=== PATIENT | female | born 1955 | race Caucasian/White ===

== ENCOUNTER → 2016-11-02 | Outpatient (CLI) | payer BC ==
[~2016-11-02] MED LIST: ATOR20TA59 PO; CITA-49 PO; CYCL-375 PO; DICL100G31 TOP; GABA-336 PO; HYDR-3989 PO; IOHEXOL 300 MG/ML 50ml INJECTION ONE; METH25VI11 SQ; METO-275 PO; NORMAL SALINE 100 ML ONE; RAMI5CAP PO; RANI150T7 PO; RIVA15TA PO; SALINE FLUSH 10ml SYRINGE ONE; SUCR1TAB PO
--- NOTE | 2016-11-02 16:26 | DI ---
Indication: ITS.REASON: R51 HEADACHE PROCEDURE: CT HEAD W/WO CONTRAST: Comparison: Head CT dated December 04, 2015 Technique: Axial CT images through the head were performed without and with IV contrast. Iterative Reconstruction dose reducing technique was utilized. Contrast: Omnipaque 300 50mL FINDINGS: The ventricles are of normal size, shape, and contour for the patient's age. Scattered low-attenuation white matter disease probably related to chronic microvascular ischemia, similar to the prior. The brainstem, cerebellum, and cerebral hemispheres have a normal morphology and CT attenuation. No hemorrhage, mass effect, mass lesions, or edema is evident. No areas of abnormal enhancement are seen. The visualized portions of the skull base, sinuses, and calvarium demonstrate no acute abnormality. Prior sinus surgery. IMPRESSION: No acute intracranial abnormality. Stable head CT. .
== END ==
LOC: IMA 14:59
PROVIDERS: ATTEND Physician Assistant
DX: R51 Headache (principal)
CPT/HCPCS: 70470; J7050; Q9967

== ENCOUNTER 2017-01-31 11:24 | Observation (INO) ==
[2017-01-31] MEDS ORDERED: SALINE FLUSH 10ml SYRINGE IVF PRN (11:30)
--- NOTE | 2017-01-31 11:41 | CT Scan Report ---
Indication: Stroke sx PROCEDURE: CT head/brain wo con: Encounter: Initial Comparison: Head CT dated November 02, 2016 Technique: Axial CT images through the head were performed without contrast. Iterative Reconstruction dose reducing technique was utilized. FINDINGS: The ventricles are of normal size, shape, and contour for the patient's age. There are scattered areas of low attenuation in the white matter which most likely represent changes from chronic microvascular ischemia. The brainstem, cerebellum, and cerebral hemispheres otherwise have a normal morphology and CT attenuation. There is no evidence of midline displacement. No hemorrhage, signs of acute territorial stroke, mass effect, mass lesions, or edema is evident. The visualized portions of the skull base, midface, and calvarium demonstrate no abnormality. The paranasal sinuses are well aerated and free of significant disease. The tympanic and mastoid cavities appear normal. IMPRESSION: No acute intracranial hemorrhage or extended infarct signs. .
[2017-01-31] MEDS ORDERED: NS 1,000 ML IV SCH (12:00)
--- NOTE | 2017-01-31 12:32 | XRay Report ---
Indication: Weakness PROCEDURE: XR chest 1V: Encounter: Initial Comparison: April 17, 2016 Findings: The lungs are stable in appearance without new focal airspace consolidation. There is no pleural effusion or pneumothorax. The heart size, pulmonary vascularity and mediastinal contours are unchanged. IMPRESSION: Stable appearance of the chest without acute cardiopulmonary disease. .
--- NOTE | 2017-01-31 12:32 | Emergency Department Report ---
Weakness HPI - General Chief complaint: Weakness Stated complaint: poss stroke Time Seen by Provider: 01/31/17 11:30 Source: patient, family Mode of arrival: ambulatory Limitations: no limitations - History of Present Illness HPI Narrative: 62yo woman referred to the ER for confusion. Pt has a h/o HTN (no longer under treatment). Was recently dx'ed with DM2 by her PCM; is not taking any hypoglycemics. Pt has a h/o TIAs (had "5" last summer). No known acute coronary hx, but is on xarelto for prior x2 PEs. Pt denies issues now other than feeling 'funny". Onset (ago): day(s) (3) Duration: intermittent Location: generalized Migration: none Relieving factors: none Exacerbating factors: exertion Context: history of similar - Related Data Home Medications Medication Instructions Recorded Confirmed Ramipril [Altace] 5 mg PO DAILY #0 02/02/15 01/31/17 Metoprolol Succinate 25 mg PO BID #0 12/04/15 01/31/17 Cyclobenzaprine HCl 10 mg PO BID PRN #0 04/17/16 01/31/17 raNITIdine HCl [Ranitidine HCl] 150 mg PO HS #0 04/17/16 01/31/17 Acetaminophen [Acetaminophen ER] 650 mg PO Q4H 01/31/17 01/31/17 Albuterol Inhaler [Ventolin Hfa] 2 puff ORAL INH Q4HR PRN 01/31/17 01/31/17 Albuterol Sulfate [Proair Hfa] 1 puff INH Q4H PRN 01/31/17 01/31/17 Beclomethasone 40 Mcg/Actuatio 2 puff ORAL INH BID 01/31/17 01/31/17 [Qvar Inhaler] Diclofenac [Voltaren] 1 applic TOP QID PRN 01/31/17 01/31/17 Folic Acid [Folate] 1 mg PO DAILY 01/31/17 01/31/17 Hydrocodone/APAP 7.5/325 [[place] 1 tab PO BID PRN 01/31/17 01/31/17 7.5/325] Methotrexate/Pf [Rasuvo 20 mg/0.4 20 mg SQ WEEKLY 01/31/17 01/31/17 ml Autoinj] Rivaroxaban [Xarelto] 15 mg PO QAM 01/31/17 01/31/17 Previous Rx's Medication Instructions Recorded citalopram 20 mg tablet 20 mg PO DAILY #30 tab 01/05/17 sucralfate 1 gram tablet 1 g PO QID #120 tab 01/05/17 Cyanocobalamin (Vitamin B-12) 1,000 mcg PO DAILY #100 tablet 02/01/17 [Vitamin B12] Metformin [Glucophage] 500 mg PO BIDWM #60 tablet 02/01/17 Allergies Allergy/AdvReac Type Severity Reaction Status Date / Time adhesive tape Allergy Intermediate BLISTERS Verified 01/31/17 12:39 morphine Allergy Intermediate Verified 01/31/17 12:39 aspirin Allergy Unknown Verified 01/31/17 12:39 cefaclor Allergy Unknown Verified 01/31/17 12:39 celecoxib Allergy Unknown Verified 01/31/17 12:39 cephalexin Allergy Unknown Verified 01/31/17 12:39 Influenza Virus Vaccines Allergy Unknown Verified 01/31/17 12:39 metronidazole Allergy Unknown Verified 01/31/17 12:39 Penicillins Allergy Unknown Verified 01/31/17 12:39 rabeprazole Allergy Unknown Verified 01/31/17 12:39 Sulfa (Sulfonamide Allergy Unknown Verified 01/31/17 12:39 Antibiotics) Review of Systems All systems: reviewed and negative except as stated Neurological: Reports: weakness, confusion PFSH Patient Stated Medical History Cerebrovascular Accident Yes Hypertension Yes Other Respiratory Yes: clots lungs Diabetes Mellitus Type 2 Yes Gastroesophageal Reflux Yes Disease Hx Kidney Stones Yes Depression Yes Clinic Medical History (Last Updated 02/01/17 @ 14:33 by Gavin Parikh MD) Allergic rhinitis (Chronic Medical) Anemia, B12 deficiency (Chronic Medical) Gastritis (Chronic Medical) History of deep venous thrombosis or pulmonary embolus (Chronic Medical) Peptic ulcer disease (Chronic Medical) TIA (transient ischemic attack) (Chronic Medical) Surgical History: left CTS/trigger finger (Dr. Santos?). Colonoscopy 2013. Cholecystectomy. Appendectomy. TAHBSO. Family History: Family History Mother , traumatic brain injury No problems noted. Father Pulmonary emphysema Sister Stomach cancer Brother Lung mass Brother Lung mass Sister Coronary artery disease involving coronary bypass graft - Social History Smoking status: Former smoker Physical Exam - Limitations Limitations: no limitations - General General appearance: alert, in no apparent distress, obese - Normal Exams: Head:: Normocephalic without trauma Eyes:: Pupils are PERRLA w/ EOMI, No scleral icterus, irritation, or foreign bodies noted ENMT:: No facial trauma, nasal exudates, pharyngeal erythema, or exudates are noted Neck:: Full range of motion, without adenopathy, JVD, bruits or thyromegaly Chest/Respirations:: Clear all parker, with good airflow, and symmetry bilaterally Cardiovascular:: Regular rate and rhythm, without murmur or gallop, Pulses 2+ all extremities, capillary refill, <2 seconds all extremities Abdomen:: Bowel sounds positive, soft, non-tender, non-distended, no hepatosplenomegaly, masses or bruits noted Lymphatic:: No lymphadenopathy, or lymphedema noted Musculoskeletal:: No tenderness, or deformity noted, good range of motion, all extremities Integumentary:: No rashes, hives, or bruising noted, hair and nails, without abnormality Psychiatric:: Patient exhibits, appropriate attention, emotion and affect - Expanded Neurological Exam Patient oriented to: Present: person, place, time Speech: Present: fluid speech Cranial nerves: Normal: EOM function (II, III, IV, ), tongue deviation (XII) Cerebellar function: Abnormal Left: finger to nose, heel to villalba Cerebellar function: ataxic gait Motor strength - LUE: 4/5 Motor strength - RUE: 5/5 Motor strength - LLE: 4/5 Motor strength - RLE: 5/5 Upper motor neuron exam: Absent bilaterally: arsh neglect, pronator drift, Babinski sign, sensory extinction Sensory exam upper extremity: Normal: light touch Sensory exam lower extremity: Normal: light touch DTR: 2+: biceps (L), biceps (R), patellar (L), patellar (R) Coma scale eye opening: spontaneous Coma scale motor response: obeys commands Coma scale verbal response: oriented Coma scale total: 15 Course - Consultations Consultation #1: Hospitalist: Will admit to complete CVA workup. Time: 13:41 Vital Signs Pulse Rate 57 L 01/31/17 12:38 Respiratory Rate 18 01/31/17 12:38 Pulse Oximetry 96 01/31/17 12:38 Temperature 97.2 F 02/01/17 07:49 Pulse Rate 71 02/01/17 07:49 Respiratory Rate 14 02/01/17 10:16 Blood Pressure 133/67 02/01/17 07:49 Pulse Oximetry 91 02/01/17 10:16 Weakness - Differential Diagnosis Differential diagnosis: Likely: anemia (TIA, CVA, Hyponatremia), hypoglycemia, hypothyroidism - Medical Records Attestation: I reviewed the patient's medical records. - Lab Data Attestation: I reviewed the patient's lab results. Result diagrams: 02/01/17 04:53 02/01/17 04:53 Lab Results 01/31/17 01/31/17 01/31/17 Range/Units 11:51 11:51 11:51 WBC 5.3 (4.5-11.0) T/MM3 RBC 4.48 (4.00-5.20) M/MM3 Hgb 12.8 (12-16) GM/DL Hct 39.7 (36-46) % MCV 88.6 (80-100) UM3 MCH 28.6 (26-34) UUG MCHC 32.2 (31-37) GM/DL RDW Std Deviation 45.0 (36.9-50.2) FL Plt Count 176 (130-400) T/MM3 MPV 9.0 L (9.4-12.4) UM3 Immature Gran % (Auto) 0.0 (0.0-0.5) % Neut % (Auto) 55.8 (33-66) % Lymph % (Auto) 31.6 (23-45) % [place] % (Auto) 8.0 (0-9.0) % Eos % (Auto) 4.0 (0-4) % Baso % (Auto) 0.6 (0-2) % Neut # 3.0 (1.8-7.7) T/MM3 Lymph # 1.7 (1-4.8) T/MM3 [place] # 0.4 (0-0.8) T/MM3 Eos # 0.2 (0-0.5) T/MM3 Baso # 0.0 (0-0.2) T/MM3 Abs Immat Gran (auto) 0.00 (0.00-0.03) T/MM3 INR 1.65 H (0.99-1.21) APTT 35.1 (24-36) SEC Turbidity < 20 (0-20) Sodium 140 (134-144) MEQ/L Potassium 4.3 (3.6-5) MEQ/L Chloride 107 (98-107) MEQ/L Carbon Dioxide 27 (22-30) MEQ/L Anion Gap 6 (5-15) MEQ/L BUN 16.0 (7-17) MG/DL Creatinine 0.6 L (0.7-1.2) MG/DL GFR Calculation 101 BUN/Creatinine Ratio 27 H (6-26) RATIO Glucose 208 H (65-110) MG/DL Calculated Osmolality 276 (261-280) MOSM/KG Calcium 10.7 H (8.4-10.2) MG/DL Phosphorus (2.5-4.5) MG/DL Total Bilirubin 1.00 (0.20-1.30) MG/DL Icterus Index < 2 (0-7) AST 22 (14-36) U/L ALT 47 (9-52) U/L Alkaline Phosphatase 130 H (38-126) U/L Troponin I (0-0.12) ng/ml Total Protein 6.5 (6.3-8.2) G/DL Albumin 4.1 (3.5-5.0) G/DL Globulin 2.4 (2.4-3.6) G/DL Albumin/Globulin Ratio 1.7 (1.1-2.2) RATIO Vitamin B12 (239-931) PG/ML TSH (0.47-4.68) MIU/L Specimen Hemolysis < 15 (0-25) Ur Collection Type Urine Color (YELLOW) Urine Clarity Urine pH (5.0-8.0) Ur Specific [place] (1.015-1.025) Urine Protein (NEGATIVE) Urine Glucose (UA) (NEGATIVE) Urine Ketones (NEGATIVE) Urine Occult Blood (NEGATIVE) Urine Nitrate (NEGATIVE) Urine Bilirubin (NEGATIVE) Urine Urobilinogen (NORMAL) EU/DL Ur Leukocyte Esterase (NEGATIVE) Urine RBC (0-3) /HPF Urine WBC (0-5) /HPF Ur Squamous Epith Cells Urine Bacteria (NEGATIVE) Ur Culture Indicated? B-Hydroxybutyrate (0-0.6) MMOL/L 01/31/17 01/31/17 01/31/17 Range/Units 12:13 12:13 12:13 WBC (4.5-11.0) T/MM3 RBC (4.00-5.20) M/MM3 Hgb (12-16) GM/DL Hct (36-46) % MCV (80-100) UM3 MCH (26-34) UUG MCHC (31-37) GM/DL RDW Std Deviation (36.9-50.2) FL Plt Count (130-400) T/MM3 MPV (9.4-12.4) UM3 Immature Gran % (Auto) (0.0-0.5) % Neut % (Auto) (33-66) % Lymph % (Auto) (23-45) % [place] % (Auto) (0-9.0) % Eos % (Auto) (0-4) % Baso % (Auto) (0-2) % Neut # (1.8-7.7) T/MM3 Lymph # (1-4.8) T/MM3 [place] # (0-0.8) T/MM3 Eos # (0-0.5) T/MM3 Baso # (0-0.2) T/MM3 Abs Immat Gran (auto) (0.00-0.03) T/MM3 INR (0.99-1.21) APTT (24-36) SEC Turbidity (0-20) Sodium (134-144) MEQ/L Potassium (3.6-5) MEQ/L Chloride (98-107) MEQ/L Carbon Dioxide (22-30) MEQ/L Anion Gap (5-15) MEQ/L BUN (7-17) MG/DL Creatinine (0.7-1.2) MG/DL GFR Calculation BUN/Creatinine Ratio (6-26) RATIO Glucose (65-110) MG/DL Calculated Osmolality (261-280) MOSM/KG Calcium (8.4-10.2) MG/DL Phosphorus 2.4 L (2.5-4.5) MG/DL Total Bilirubin (0.20-1.30) MG/DL Icterus Index (0-7) AST (14-36) U/L ALT (9-52) U/L Alkaline Phosphatase (38-126) U/L Troponin I < 0.012 (0-0.12) ng/ml Total Protein (6.3-8.2) G/DL Albumin (3.5-5.0) G/DL Globulin (2.4-3.6) G/DL Albumin/Globulin Ratio (1.1-2.2) RATIO Vitamin B12 281 (239-931) PG/ML TSH 0.81 (0.47-4.68) MIU/L Specimen Hemolysis < 15 (0-25) Ur Collection Type Urine Color (YELLOW) Urine Clarity Urine pH (5.0-8.0) Ur Specific [place] (1.015-1.025) Urine Protein (NEGATIVE) Urine Glucose (UA) (NEGATIVE) Urine Ketones (NEGATIVE) Urine Occult Blood (NEGATIVE) Urine Nitrate (NEGATIVE) Urine Bilirubin (NEGATIVE) Urine Urobilinogen (NORMAL) EU/DL Ur Leukocyte Esterase (NEGATIVE) Urine RBC (0-3) /HPF Urine WBC (0-5) /HPF Ur Squamous Epith Cells Urine Bacteria (NEGATIVE) Ur Culture Indicated? B-Hydroxybutyrate 0.10 (0-0.6) MMOL/L 01/31/17 Range/Units 12:22 WBC (4.5-11.0) T/MM3 RBC (4.00-5.20) M/MM3 Hgb (12-16) GM/DL Hct (36-46) % MCV (80-100) UM3 MCH (26-34) UUG MCHC (31-37) GM/DL RDW Std Deviation (36.9-50.2) FL Plt Count (130-400) T/MM3 MPV (9.4-12.4) UM3 Immature Gran % (Auto) (0.0-0.5) % Neut % (Auto) (33-66) % Lymph % (Auto) (23-45) % [place] % (Auto) (0-9.0) % Eos % (Auto) (0-4) % Baso % (Auto) (0-2) % Neut # (1.8-7.7) T/MM3 Lymph # (1-4.8) T/MM3 [place] # (0-0.8) T/MM3 Eos # (0-0.5) T/MM3 Baso # (0-0.2) T/MM3 Abs Immat Gran (auto) (0.00-0.03) T/MM3 INR (0.99-1.21) APTT (24-36) SEC Turbidity (0-20) Sodium (134-144) MEQ/L Potassium (3.6-5) MEQ/L Chloride (98-107) MEQ/L Carbon Dioxide (22-30) MEQ/L Anion Gap (5-15) MEQ/L BUN (7-17) MG/DL Creatinine (0.7-1.2) MG/DL GFR Calculation BUN/Creatinine Ratio (6-26) RATIO Glucose (65-110) MG/DL Calculated Osmolality (261-280) MOSM/KG Calcium (8.4-10.2) MG/DL Phosphorus (2.5-4.5) MG/DL Total Bilirubin (0.20-1.30) MG/DL Icterus Index (0-7) AST (14-36) U/L ALT (9-52) U/L Alkaline Phosphatase (38-126) U/L Troponin I (0-0.12) ng/ml Total Protein (6.3-8.2) G/DL Albumin (3.5-5.0) G/DL Globulin (2.4-3.6) G/DL Albumin/Globulin Ratio (1.1-2.2) RATIO Vitamin B12 (239-931) PG/ML TSH (0.47-4.68) MIU/L Specimen Hemolysis (0-25) Ur Collection Type Urine, clean catch Urine Color Yellow (YELLOW) Urine Clarity Clear Urine pH 6.0 (5.0-8.0) Ur Specific [place] 1.020 (1.015-1.025) Urine Protein Negative (NEGATIVE) Urine Glucose (UA) 3+ A (NEGATIVE) Urine Ketones Negative (NEGATIVE) Urine Occult Blood Negative (NEGATIVE) Urine Nitrate Negative (NEGATIVE) Urine Bilirubin Negative (NEGATIVE) Urine Urobilinogen 1.0 (NORMAL) EU/DL Ur Leukocyte Esterase Negative (NEGATIVE) Urine RBC 0-1 (0-3) /HPF Urine WBC 0-1 (0-5) /HPF Ur Squamous Epith Cells 0-5 Urine Bacteria None seen (NEGATIVE) Ur Culture Indicated? Cult not indicated B-Hydroxybutyrate (0-0.6) MMOL/L - Radiology Data Attestation: I reviewed the patient's radiology results. CT Head:No acute intracranial hemorrhage or extended infarct signs. CXR: Disposition Clinical Impression: CVA (cerebral vascular accident) Qualifiers: CVA mechanism: unspecified Qualified Code(s): I63.9 - Cerebral infarction, unspecified Disposition: 02 To [facility] Condition: Improved Time of Disposition: 13:49 - Seen By: physician
[2017-01-31] MEDS ORDERED: ACETAMINOPHEN 500 MG TABLET PO PRN (13:30)
--- NOTE | 2017-01-31 15:53 | History & Physical Report ---
<Nisha Larson V - Last Filed: 01/31/17 15:42> History of Present Illness Date: 01/31/17 Chief complaint: chest pain, left arm numbness, confusion HPI: She is a 62-year-old female who presented to see her primary care provider, Zenia Arias this morning for a routine follow-up of new onset diabetes. During her visit. Miesha reported of having intermittent episodes of chest pain with left arm numbness for the past several weeks. She reported that she has had a change in her concentration and has episodes of confusion with memory deficits. It was reported that patient had an A1c in November 2015 that was 7.3. Patient did not start diabetes medication at that time. Given the concern of these acute symptoms. Patient was directed to the emergency room for further acute evaluation and treatment. CBC was found to be normal. Sodium is 140, potassium 4.3, BUNs 16, creatinine 0.6. Glucose is elevated at 208. Calcium is elevated at 10.7, phosphorus is low at 2.4. Initial troponin is undetectable. INR is 1.65. Urinalysis did reveal 3+ glucose, otherwise unremarkable. B- Hydroxybutyrate was normal at 0.10. CT scan of the head was performed showing no acute intracranial hemorrhage or infarcts. Asked x-ray did not reveal any acute cardiopulmonary concerns. Is afebrile in the emergency room. She is noted to have elevated blood pressure 171/78. Given findings of mental status change . Complaint with ongoing chest pain with left arm numbness. The hospitalist services were contacted and accepted patient for outpatient admission for further evaluation and treatment. Miesha is seen on initial examination. She is alert and oriented and pleasant during examination. She does describe intermittent episodes of chest pressure with left arm numbness that have been ongoing for the past 3 weeks. She notes in the last several days that she is confused and cannot remember certain tasks. She also describes looking at a computer screen and unable to read "normal words". He has had no recent trauma or acute changes. Patient is active and resides independently with her . She continues to work. Review of Systems All systems: reviewed and no additional remarkable complaints except as stated - Constitutional Constitutional: Present: fatigue - Cardiovascular Cardiovascular: Present: chest pain - Neurological Neurological: Present: as per HPI, confusion, headache(s), numbness (left arm) [facility] Clinic Medical History (Last Updated 01/31/17 @ 13:50 by Yandel Rdz November, DO) Type II diabetes Coronary artery disease Hypertension Hx of TIA Hx of PE and DVT Allergic rhinitis Anemia, B12 deficiency hx of Gastritis and Peptic ulcer disease Depression History of kidney stones Surgical History: left CTS/trigger finger (Dr. Santos?). L4-L5 lumbar fusion. Colonoscopy 2012. Cholecystectomy. Appendectomy. TAHBSO. Left total knee replacement. Right shoulder surgery Family History: Family History Mother , traumatic brain injury No problems noted. Father Pulmonary emphysema Sister Stomach cancer Brother Lung mass Brother Lung mass Sister Coronary artery disease involving coronary bypass graft - Social History Smoking status: Former smoker Medications Home Medications Medication Instructions Recorded Confirmed Type Ramipril [Altace] 5 mg PO DAILY #0 02/02/15 01/31/17 History Metoprolol Succinate 25 mg PO BID #0 12/04/15 01/31/17 History Cyclobenzaprine HCl 10 mg PO BID PRN #0 04/17/16 01/31/17 History raNITIdine HCl [Ranitidine HCl] 150 mg PO HS #0 04/17/16 01/31/17 History Acetaminophen [Acetaminophen ER] 650 mg PO Q4H 01/31/17 01/31/17 History Albuterol Inhaler [Ventolin Hfa] 2 puff ORAL INH Q4HR PRN 01/31/17 01/31/17 History Albuterol Sulfate [Proair Hfa] 1 puff INH Q4H PRN 01/31/17 01/31/17 History Beclomethasone 40 Mcg/Actuatio 2 puff ORAL INH BID 01/31/17 01/31/17 History [Qvar Inhaler] Diclofenac [Voltaren] 1 applic TOP QID PRN 01/31/17 01/31/17 History Folic Acid [Folate] 1 mg PO DAILY 01/31/17 01/31/17 History Hydrocodone/APAP 7.5/325 [[place] 1 tab PO BID PRN 01/31/17 01/31/17 History 7.5/325] Methotrexate/Pf [Rasuvo 20 mg/0.4 20 mg SQ WEEKLY 01/31/17 01/31/17 History ml Autoinj] Rivaroxaban [Xarelto] 15 mg PO QAM 01/31/17 01/31/17 History Allergies Allergy/AdvReac Type Severity Reaction Status Date / Time adhesive tape Allergy Intermediate BLISTERS Verified 01/31/17 12:39 morphine Allergy Intermediate Verified 01/31/17 12:39 aspirin Allergy Unknown Verified 01/31/17 12:39 cefaclor Allergy Unknown Verified 01/31/17 12:39 celecoxib Allergy Unknown Verified 01/31/17 12:39 cephalexin Allergy Unknown Verified 01/31/17 12:39 Influenza Virus Vaccines Allergy Unknown Verified 01/31/17 12:39 metronidazole Allergy Unknown Verified 01/31/17 12:39 Penicillins Allergy Unknown Verified 01/31/17 12:39 rabeprazole Allergy Unknown Verified 01/31/17 12:39 Sulfa (Sulfonamide Allergy Unknown Verified 01/31/17 12:39 Antibiotics) Exam Vital Signs: Temperature 96.7 F L 01/31/17 14:41 Pulse Rate 62 01/31/17 14:41 Respiratory Rate 20 01/31/17 14:41 Blood Pressure 171/78 H 01/31/17 14:41 Pulse Oximetry 94 01/31/17 14:41 Oxygen Delivery Method Room Air Height: 1.63 m Weight: 82.1 kg - Constitutional Present: well nourished, well developed - Routine HEENT Exam Eye: Present: EOMI, PERRL, normal accommodation ENT: Present: mucous membranes moist, dentition normal - Routine Neck Exam Present: supple, full ROM - Routine Respiratory Exam Present: CTA bilaterally. Absent: wheezes - Routine Cardiovascular Exam Present: RRR, S1, S2, no murmur. Absent: murmur - Routine Abdominal Exam Present: soft, normoactive bowel sounds, non distended. Absent: tenderness - Routine Extremities Exam Present: no edema, full ROM, normal capillary refill - Routine Back/Spine/Pelvis Exam Back/Spine: Present: full ROM - Routine Skin Exam Present: intact, dry, warm - Routine Neurological Exam Present: alert, oriented X3, CN II-XII intact, moving all extremities, vision grossly intact, hearing grossly intact, normal speech. Absent: motor deficit, pronator drift, nystagmus, facial asymmetry - Routine Psychiatric Exam Present: normal affect, normal thought process Results - Labs CBC & Chem 7: 01/31/17 11:51 01/31/17 11:51 Assessment and Plan (1) Mental status change Current visit: Yes Status: Acute (2) Chest pain Current visit: Yes Status: Acute (3) DM (diabetes mellitus) Current visit: Yes Status: Chronic (4) HTN (hypertension) Current visit: Yes Status: Chronic (5) Pulmonary emboli Current visit: Yes Status: Chronic (6) Chronic anticoagulation Current visit: Yes Status: Chronic Assessment and Plan: Admit to outpatinet observation under the care of Dr Parikh for mental status change, chest pain with left arm numbness Will obtain MRI of the brain to rule out further ischemia. Given mental status change. Will obtain Echocardiogram. Consult placed to Dr. Kelsey for further cardiac evaluation and treatment. Given ongoing chest pain with left arm numbness. Will follow patient. Cardiac telemetry Normal saline at 75 ML per hour for ongoing hydration. Will monitor Accu-Cheks. Last reported hemoglobin A1c was from November 2015 at which time it was 7.3. We will recheck a hemoglobin A1c tomorrow with morning labs. Also obtain TSH, vitamin B12 and phosphorus for laboratory completeness Patient was given a one-time dose of oral phosphate supplementation. Given low phosphorus level on admission. Patient is chronically around Xarelto for anticoagulation. Will place Flexeril and [place] on hold as this can influence mentation Discuss further orders and plan of care with attending, Dr. Parikh Hospital Course Summary Disclaimer: The visit summary below is not to be considered part of the above Progress Note. Hospital Course: 01/31/17 Admit to outpatinet observation under the care of Dr Parikh for mental status change, chest pain with left arm numbness Will obtain MRI of the brain to rule out further ischemia. Given mental status change. Will obtain Echocardiogram. Consult placed to Dr. Kelsey for further cardiac evaluation and treatment. Given ongoing chest pain with left arm numbness. Will follow patient. Cardiac telemetry Normal saline at 75 ML per hour for ongoing hydration. Will monitor Accu-Cheks. Last reported hemoglobin A1c was from November 2015 at which time it was 7.3. We will recheck a hemoglobin A1c tomorrow with morning labs. Also obtain TSH, vitamin B12 and phosphorus for laboratory completeness Patient was given a one-time dose of oral phosphate supplementation. Given low phosphorus level on admission. Patient is chronically around Xarelto for anticoagulation. Will place Flexeril and [place] on hold as this can influence mentation Discuss further orders and plan of care with attending, Dr. Parikh <Gavin Parikh - Last Filed: 01/31/17 20:09> History of Present Illness Date: 01/31/17 [facility] Patient Stated Medical History Cerebrovascular Accident Yes Hypertension Yes Other Respiratory Yes: clots lungs Diabetes Mellitus Type 2 Yes Gastroesophageal Reflux Yes Disease Hx Kidney Stones Yes Depression Yes Clinic Medical History (Last Updated 01/31/17 @ 17:09 by Lisa Mo, ATTACHER) Allergic rhinitis (Chronic Medical) Anemia, B12 deficiency (Chronic Medical) Gastritis (Chronic Medical) History of deep venous thrombosis or pulmonary embolus (Chronic Medical) Peptic ulcer disease (Chronic Medical) TIA (transient ischemic attack) (Chronic Medical) Family History: Family History Mother , traumatic brain injury No problems noted. Father Pulmonary emphysema Sister Stomach cancer Brother Lung mass Brother Lung mass Sister Coronary artery disease involving coronary bypass graft Exam Vital Signs: Temperature 96.7 F L 01/31/17 14:41 Pulse Rate 62 01/31/17 14:41 Respiratory Rate 20 01/31/17 14:41 Blood Pressure 171/78 H 01/31/17 14:41 Pulse Oximetry 94 01/31/17 14:41 Oxygen Delivery Method Room Air Height: 1.63 m Weight: 83.9 kg Results - Labs CBC & Chem 7: 01/31/17 11:51 01/31/17 11:51 Assessment and Plan (1) Mental status change Current visit: Yes Status: Acute (2) Chest pain Current visit: Yes Status: Acute (3) DM (diabetes mellitus) Current visit: Yes Status: Chronic (4) HTN (hypertension) Current visit: Yes Status: Chronic (5) Pulmonary emboli Current visit: Yes Status: Chronic (6) Chronic anticoagulation Current visit: Yes Status: Chronic Assessment and Plan: Have independently interviewed and examined pt. Chart reviewed. Case discussed with ED provider and my ATTACHER. Care plan developed with my supervision; agree with above. Chest pain off and on for several days. Note she feels very tired and fatigues- sleeping well at night, but sleeping often through the day. Harder to concentrate and focus. Vision off - hard to read computer screen. Note some weakness/numbness to left arm. NI-top of her head. Chest pain she has is a sharp stabbing pain at the low center of chest-moves clear through body. Pain worse with movement. Sometimes, feels more full to stomach. No nausea, but eating less. Stools essentially stable. No recent trauma or injury. No f/c. Lungs: clear CV: regular AB: soft nt/nd +BS MSE: awake alert appropriate. Plan: OBS. MRI of brain to exclude occult process. PT/OT/Speech. Will have neurology evaluate pt. Potentially these symptoms could be secondary to poorly controlled diabetes, may also be NICHELLE. TSH normal. Will have Dr Kelsey evaluate pt's chest pain symptoms-toponin are negative. Hospital Course Summary Disclaimer: The visit summary below is not to be considered part of the above Progress Note.
[2017-01-31] MEDS: NS 1,000 ML IV SCH (16:06)
--- NOTE | 2017-01-31 16:06 | Ultrasound Report ---
Indication: Left sided weakness PROCEDURE: US carotid doppler BI: TECHNIQUE: Grayscale, color and duplex Doppler imaging was performed of the carotid systems bilaterally. Velocities in cm/sec - validated velocity measurements with angiographic measurements, velocity criteria are extrapolated from diameter data as defined by the Society of Radiologists in Ultrasound Consensus Conference Radiology 2003; 229;340-346. Comparison: Carotid Doppler dated April 24, 2016 RIGHT: PSV ICA 106 EDV ICA 32.8 PSV CCA 86.6 EDV CCA 26.9 SVR 1.2 PSV ECA 63.6 ICA Diameter reduction 20%-40% (1.2-1.4 [id number])% LEFT: PSV ICA 93.6 EDV ICA 31.4 PSV CCA 78.9 EDV CCA 26.3 SVR 1.2 PSV ECA 73.7 ICA Diameter reduction 20%-40% (1.2-1.4 [id number])% The right vertebral artery is patent with cephalic flow. The left vertebral artery is patent with cephalic flow. IMPRESSION: No hemodynamically significant carotid stenosis. .
[2017-01-31 16:22] VITALS: BMI 31.7
[2017-01-31] MEDS ORDERED: ALBUTEROL 2.5mg/3ml (0.083%) NEB AEROSOL PRN (16:31)
[2017-01-31] MEDS ORDERED: DICLOFENAC 1% TOP GEL 100gm TP PRN (16:31)
--- NOTE | 2017-01-31 16:47 | Cardiology Consult Note ---
History of Present Illness Consult date: 01/31/17 <Lisa Mo - 01/31/17 17:09> Requesting physician: Gavin Parikh <Lisa Mo - 01/31/17 17:09> Consult reason: chest pain <Lisa Mo - 01/31/17 17:09> Chief complaint: weakness <Lisa Mo - 01/31/17 17:09> History of present illness: Miesha is a 62-year-old female who is known to Dr. Kelsey witha history of palpitations, HTN, HLD and personal history of PE. She presented to see her primary care provider, Zenia WILSON this morning for a routine follow-up of new onset diabetes. During her visit. Miesha reported of having intermittent episodes of chest pain with left arm numbness for the past several weeks. She reported that she has had a change in her concentration and has episodes of confusion with memory deficits. It was reported that patient had an A1c in November 2015 that was 7.3. Patient did not start diabetes medication at that time. Given the concern of these acute symptoms. Patient was directed to the ED for further acute evaluation and treatment. She is noted to have elevated blood pressure 171/78. Chest x-ray did not reveal any acute cardiopulmonary concerns. Is afebrile in the emergency room. Given findings of mental status change . Complaint with ongoing chest pain with left arm numbness. The hospitalist services were contacted and accepted patient for outpatient admission for further evaluation and treatment. Miesha describes intermittent episodes of sharp, nagging sternal chest pressure with left arm numbness and weakness that have been ongoing for the past 3 weeks mostly following vigorous housework or exercise. She reports nausea and shortness of air associated with the episodes. She c/o headache today. She notes in the last several days that she is confused and cannot remember certain tasks. She also describes looking at a computer screen and unable to read "normal words". He has had no recent trauma or acute changes. Patient is active and resides independently with her . She continues to work. <Lisa Mo - 01/31/17 17:09> Review of Systems - Constitutional Constitutional: Present: fatigue, headache(s), weakness (left arm). Absent: chills, fever(s) <Lisa Mo 01/31/17 17:09> - EENMT Eyes: Present: change in vision <Lisa Mo 01/31/17 17:09> Balance: Absent: vertigo <Lisa Mo 01/31/17 17:09> Mouth/Throat: Absent: sore throat <Lisa Mo 01/31/17 17:09> - Cardiovascular Cardiovascular: Present: chest pain. Absent: palpitations, syncope, dyspnea on exertion, orthopnea, edema <Lisa Mo 01/31/17 17:09> - Respiratory Respiratory: Absent: cough <Lisa Mo 01/31/17 17:09> - Gastrointestinal Gastrointestinal: Absent: constipation, diarrhea, nausea, vomiting <Lisa Mo 01/31/17 17:09> - Genitourinary Genitourinary: Absent: dysuria <ChepeLisa vega 01/31/17 17:09> - Neurological Neurological: Present: as per HPI, confusion, headache(s), numbness (left arm), weakness (left arm). Absent: dizziness, vertigo <Lisa Mo 01/31/17 17 :09> - Psychiatric Psychiatric: Present: difficulty concentrating <Lisa Mo 01/31/17 17: 09> [facility] Patient Stated Medical History Cerebrovascular Accident Yes Hypertension Yes Other Respiratory Yes: clots lungs Diabetes Mellitus Type 2 Yes Gastroesophageal Reflux Yes Disease Hx Kidney Stones Yes Depression Yes Clinic Medical History (Last Updated 02/01/17 @ 14:33 by Gavin Parikh MD) Allergic rhinitis (Chronic Medical) Anemia, B12 deficiency (Chronic Medical) Gastritis (Chronic Medical) History of deep venous thrombosis or pulmonary embolus (Chronic Medical) Peptic ulcer disease (Chronic Medical) TIA (transient ischemic attack) (Chronic Medical) <Ish Kelsey - 02/07/17 11:37> Patient Stated Medical History Cerebrovascular Accident Yes Hypertension Yes Other Respiratory Yes: clots lungs Diabetes Mellitus Type 2 Yes Gastroesophageal Reflux Yes Disease Hx Kidney Stones Yes Depression Yes Clinic Medical History (Last Updated 01/31/17 @ 16:36 by Nisha Larson APRN) Allergic rhinitis (Chronic Medical) Anemia, B12 deficiency (Chronic Medical) Gastritis (Chronic Medical) History of deep venous thrombosis or pulmonary embolus (Chronic Medical) Peptic ulcer disease (Chronic Medical) TIA (transient ischemic attack) (Chronic Medical) <Lisa Mo - 01/31/17 17:09> Surgical History: left CTS/trigger finger (Dr. Santos?). L4-L5 lumbar fusion. Colonoscopy 2012. Cholecystectomy. Appendectomy. TAHBSO. Left total knee replacement. Right shoulder surgery <Lisa Mo - 01/31/17 17: 09> Family History: Family History Mother , traumatic brain injury No problems noted. Father Pulmonary emphysema Sister Stomach cancer Brother Lung mass Brother Lung mass Sister Coronary artery disease involving coronary bypass graft <Ish Kelsey - 02/07/17 11:37> Family History Mother , traumatic brain injury No problems noted. Father Pulmonary emphysema Sister Stomach cancer Brother Lung mass Brother Lung mass Sister Coronary artery disease involving coronary bypass graft <ChepeLisa Rdz 01/31/17 17:09> - Social History Smoking status: Former smoker <ChepeLisa vega Kajal 01/31/17 17:09> Quit date: 07/23/05 <ChepeLisa vega Kajal 01/31/17 17:09> Substance use type: does not use <ChepeLisa Kajal 01/31/17 17:09> Alcohol intake: former <ChepeLisa Kajal 01/31/17 17:09> Alcohol intake frequency: former alcohol drinker <ChepeLisa Kajal - 01/31/17 17 :09> Household members: spouse <ChepeLisa Kajal 01/31/17 17:09> Current occupational status: employed <ChepeLisa vega Kajal 01/31/17 17:09> Medications Home Medications Medication Instructions Recorded Confirmed Type Ramipril [Altace] 5 mg PO DAILY #0 02/02/15 01/31/17 History Metoprolol Succinate 25 mg PO BID #0 12/04/15 01/31/17 History Cyclobenzaprine HCl 10 mg PO BID PRN #0 04/17/16 01/31/17 History raNITIdine HCl [Ranitidine HCl] 150 mg PO HS #0 04/17/16 01/31/17 History Acetaminophen [Acetaminophen ER] 650 mg PO Q4H 01/31/17 01/31/17 History Albuterol Inhaler [Ventolin Hfa] 2 puff ORAL INH Q4HR PRN 01/31/17 01/31/17 History Albuterol Sulfate [Proair Hfa] 1 puff INH Q4H PRN 01/31/17 01/31/17 History Beclomethasone 40 Mcg/Actuatio 2 puff ORAL INH BID 01/31/17 01/31/17 History [Qvar Inhaler] Diclofenac [Voltaren] 1 applic TOP QID PRN 01/31/17 01/31/17 History Folic Acid [Folate] 1 mg PO DAILY 01/31/17 01/31/17 History Hydrocodone/APAP 7.5/325 [Dime Box 1 tab PO BID PRN 01/31/17 01/31/17 History 7.5/325] Methotrexate/Pf [Rasuvo 20 mg/0.4 20 mg SQ WEEKLY 01/31/17 01/31/17 History ml Autoinj] Rivaroxaban [Xarelto] 15 mg PO QAM 01/31/17 01/31/17 History <Ish Kelsey - 02/07/17 11:37> Allergies Allergy/AdvReac Type Severity Reaction Status Date / Time adhesive tape Allergy Intermediate BLISTERS Verified 01/31/17 12:39 morphine Allergy Intermediate Verified 01/31/17 12:39 aspirin Allergy Unknown Verified 01/31/17 12:39 cefaclor Allergy Unknown Verified 01/31/17 12:39 celecoxib Allergy Unknown Verified 01/31/17 12:39 cephalexin Allergy Unknown Verified 01/31/17 12:39 Influenza Virus Vaccines Allergy Unknown Verified 01/31/17 12:39 metronidazole Allergy Unknown Verified 01/31/17 12:39 Penicillins Allergy Unknown Verified 01/31/17 12:39 rabeprazole Allergy Unknown Verified 01/31/17 12:39 Sulfa (Sulfonamide Allergy Unknown Verified 01/31/17 12:39 Antibiotics) <Ish Kelsey - 02/07/17 11:37> Exam Vital signs: Temperature 97.2 F 02/01/17 07:49 Pulse Rate 71 02/01/17 07:49 Respiratory Rate 14 02/01/17 10:16 Blood Pressure 133/67 02/01/17 07:49 Pulse Oximetry 91 02/01/17 10:16 Oxygen Delivery Method Room Air <Ish Kelsey - 02/07/17 11:37> Temperature 96.7 F L 01/31/17 14:41 Pulse Rate 62 01/31/17 14:41 Respiratory Rate 20 01/31/17 14:41 Blood Pressure 171/78 H 01/31/17 14:41 Pulse Oximetry 94 01/31/17 14:41 Oxygen Delivery Method Room Air <Lisa Mo [facility] 01/31/17 17:09> - Constitutional no acute distress, obese, cooperative <Lisa Mo [facility] 01/31/17 17:09> - Routine Neck Exam Absent: JVD, carotid bruit <Lisa Mo [facility] 01/31/17 17:09> - Routine Chest/Breast/Axilla Exam Chest wall: Absent: tenderness <Lisa Mo [facility] 01/31/17 17:09> - Routine Respiratory Exam Present: CTA bilaterally, diminished air movement. Absent: rales, wheezes < ChepeLisa [facility] 01/31/17 17:09> - Routine Cardiovascular Exam Present: RRR, S1, S2, no murmur. Absent: JVD <Lisa Mo [facility] 01/31/17 17:09 > - Routine Abdominal Exam Present: soft, normoactive bowel sounds <Lisa Mo [facility] 01/31/17 17:09> - Routine Extremities Exam Present: no edema <Lisa Mo [facility] 01/31/17 17:09> - Routine Skin Exam Present: intact <Lisa Mo [facility] 01/31/17 17:09> - Routine Neurological Exam Present: alert, oriented X3 <ChepeLisa [facility] 01/31/17 17:09> - Routine Psychiatric Exam Present: normal affect, normal thought process <ChepeLisa [facility] 01/31/17 17: 09> Results 02/01/17 04:53 02/01/17 04:53 <LowIsh - 02/07/17 11:37> Intake and Output 01/31/17 01/31/17 01/31/17 06:59 14:59 22:59 Other: Weight 184 lb 15.485 oz Patient Weight 02/01/17 06:59 Weight 184 lb 15.485 oz Laboratory Results - last 48 hr 01/31/17 01/31/17 01/31/17 11:51 11:51 11:51 WBC 5.3 RBC 4.48 Hgb 12.8 Hct 39.7 MCV 88.6 MCH 28.6 MCHC 32.2 RDW Std Deviation 45.0 Plt Count 176 MPV 9.0 L Immature Gran % (Auto) 0.0 Neut % (Auto) 55.8 Lymph % (Auto) 31.6 [place] % (Auto) 8.0 Eos % (Auto) 4.0 Baso % (Auto) 0.6 Neut # 3.0 Lymph # 1.7 [place] # 0.4 Eos # 0.2 Baso # 0.0 Abs Immat Gran (auto) 0.00 INR 1.65 H APTT 35.1 Turbidity < 20 Sodium 140 Potassium 4.3 Chloride 107 Carbon Dioxide 27 Anion Gap 6 BUN 16.0 Creatinine 0.6 L GFR Calculation 101 BUN/Creatinine Ratio 27 H Glucose 208 H Calculated Osmolality 276 Calcium 10.7 H Phosphorus Total Bilirubin 1.00 Icterus Index < 2 AST 22 ALT 47 Alkaline Phosphatase 130 H Troponin I Total Protein 6.5 Albumin 4.1 Globulin 2.4 Albumin/Globulin Ratio 1.7 TSH Specimen Hemolysis < 15 Ur Collection Type Urine Color Urine Clarity Urine pH Ur Specific [place] Urine Protein Urine Glucose (UA) Urine Ketones Urine Occult Blood Urine Nitrate Urine Bilirubin Urine Urobilinogen Ur Leukocyte Esterase Urine RBC Urine WBC Ur Squamous Epith Cells Urine Bacteria Ur Culture Indicated? B-Hydroxybutyrate 01/31/17 01/31/17 01/31/17 12:13 12:13 12:22 WBC RBC Hgb Hct MCV MCH MCHC RDW Std Deviation Plt Count MPV Immature Gran % (Auto) Neut % (Auto) Lymph % (Auto) [place] % (Auto) Eos % (Auto) Baso % (Auto) Neut # Lymph # [place] # Eos # Baso # Abs Immat Gran (auto) INR APTT Turbidity Sodium Potassium Chloride Carbon Dioxide Anion Gap BUN Creatinine GFR Calculation BUN/Creatinine Ratio Glucose Calculated Osmolality Calcium Phosphorus 2.4 L Total Bilirubin Icterus Index AST ALT Alkaline Phosphatase Troponin I < 0.012 Total Protein Albumin Globulin Albumin/Globulin Ratio TSH 0.81 Specimen Hemolysis < 15 Ur Collection Type Urine, clean catch Urine Color Yellow Urine Clarity Clear Urine pH 6.0 Ur Specific [place] 1.020 Urine Protein Negative Urine Glucose (UA) 3+ A Urine Ketones Negative Urine Occult Blood Negative Urine Nitrate Negative Urine Bilirubin Negative Urine Urobilinogen 1.0 Ur Leukocyte Esterase Negative Urine RBC 0-1 Urine WBC 0-1 Ur Squamous Epith Cells 0-5 Urine Bacteria None seen Ur Culture Indicated? Cult not indicated B-Hydroxybutyrate 0.10 <Lisa Mo - 01/31/17 17:09> - Imaging and Cardiology EKG results: image reviewed <Lisa Mo - 01/31/17 17:09> Imaging & Cardiology Narrative: Date of Exam: 01/31/17 Type of Exam(s): US echo doppler complete DATE OF PROCEDURE 01/31/2017 This is a two-dimensional echo with spectral Doppler, color-flow and M-mode. It was obtained in a patient with left-sided weakness and mental status changes. Left atrial dimension is normal. Left ventricular end-diastolic dimension is normal. Left ventricular wall thickness is normal. LV systolic function is at the lower limits of normal with ejection fraction of about 50%. Right atrium is normal. Right ventricle is normal. Aortic root dimension is normal. Mitral valve is morphologically normal with mild mitral regurgitation. Aortic valve appears to be normal. Tricuspid valve shows mild tricuspid regurgitation with normal estimated pulmonary artery systolic pressure of 30. Pulmonary valve shows no pulmonary insufficiency. There is no pericardial effusion. IMPRESSION 1. LV function at the lower limits of normal with ejection fraction of 50%. 2. Mild mitral regurgitation. 3. Mild tricuspid regurgitation with normal estimated pulmonary artery systolic pressure of 30. Date of Exam: 01/31/17 Ordering Provider: Yandel Manuel DO Type of Exam(s): XR chest 1V Reason for Exam(s): Weakness Indication: Weakness PROCEDURE: XR chest 1V: Encounter: Initial Comparison: April 17, 2016 Findings: The lungs are stable in appearance without new focal airspace consolidation. There is no pleural effusion or pneumothorax. The heart size, pulmonary vascularity and mediastinal contours are unchanged. IMPRESSION: Stable appearance of the chest without acute cardiopulmonary disease. Date of Exam: 01/31/17 Ordering Provider: Gavin Parikh MD Type of Exam(s): US carotid doppler BI Reason for Exam(s): Left sided weakness Indication: Left sided weakness PROCEDURE: US carotid doppler BI: TECHNIQUE: Grayscale, color and duplex Doppler imaging was performed of the carotid systems bilaterally. Velocities in cm/sec - validated velocity measurements with angiographic measurements, velocity criteria are extrapolated from diameter data as defined by the Society of Radiologists in Ultrasound Consensus Conference Radiology 2003; 229;340-346. Comparison: Carotid Doppler dated April 24, 2016 RIGHT: PSV ICA 106 EDV ICA 32.8 PSV CCA 86.6 EDV CCA 26.9 SVR 1.2 PSV ECA 63.6 ICA Diameter reduction 20%-40% (1.2-1.4 [id number])% LEFT: PSV ICA 93.6 EDV ICA 31.4 PSV CCA 78.9 EDV CCA 26.3 SVR 1.2 PSV ECA 73.7 ICA Diameter reduction 20%-40% (1.2-1.4 [id number])% The right vertebral artery is patent with cephalic flow. The left vertebral artery is patent with cephalic flow. IMPRESSION: No hemodynamically significant carotid stenosis. <Lisa Mo - 02/01/17 11:24> EKG interpretations - EKG EKG results cardiology: WNL <Lisa Mo - 02/01/17 11:24> EKG shows: bradycardia <Lisa Mo - 02/01/17 11:24> - Dysrhythmias Sinus rhythms and dysrhythmias: sinus rhythm (HR 59) <Lisa Mo - 11:24> Assessment and Plan (1) Chronic anticoagulation Status: Chronic (2) Precordial pain Status: Resolved (3) Essential (primary) hypertension Status: Acute (4) Mixed hyperlipidemia Status: Acute (5) Personal history of pulmonary embolism Status: Acute (6) Type 2 diabetes mellitus without complications Status: Acute <Ish Kelsey - 02/07/17 11:37> (1) Precordial pain Status: Acute Trend serial troponins. Repeat EKG in the morning, monitor telemetry (2) Essential (primary) hypertension Status: Acute Continue home JOSELYN & BB (3) Mixed hyperlipidemia Status: Acute (4) Personal history of pulmonary embolism Status: Acute Continue Xarelto (5) Chronic anticoagulation Status: Chronic Takes Xarelto for history of DVT/ PE (6) Type 2 diabetes mellitus without complications Status: Acute <Lisa Mo - 02/01/17 13:01> - Attestation Attestation Narrative: 02/07/17 11:37 Recommendation After examining the patient I agree with the above assessment. I am involved in the formulation of the patient's plan of care. <Ish Kelsey - 02/07/17 11:37> Hospital Course Summary Disclaimer: The visit summary below is not to be considered part of the above Progress Note. <Ish Kelsey - 02/07/17 11:37> The visit summary below is not to be considered part of the above Progress Note. <Lisa Mo - 01/31/17 17:09> Hospital Course: 01/31/17 Admit to outpatinet observation under the care of Dr Parikh for mental status change, chest pain with left arm numbness Will obtain MRI of the brain to rule out further ischemia. Given mental status change. Will obtain Echocardiogram. Consult placed to Dr. Kelsey for further cardiac evaluation and treatment. Given ongoing chest pain with left arm numbness. Will follow patient. Cardiac telemetry Normal saline at 75 ML per hour for ongoing hydration. Will monitor Accu-Cheks. Last reported hemoglobin A1c was from November 2015 at which time it was 7.3. We will recheck a hemoglobin A1c tomorrow with morning labs. Also obtain TSH, vitamin B12 and phosphorus for laboratory completeness Patient was given a one-time dose of oral phosphate supplementation. Given low phosphorus level on admission. Patient is chronically around Xarelto for anticoagulation. Will place Flexeril and Dime Box on hold as this can influence mentation Discuss further orders and plan of care with attending, Dr. Parikh <Lisa Mo - 01/31/17 17:09>
[2017-01-31] MEDS ORDERED: POTASSIUM ACID PHOSPHATE 500 MG TABLET PO ONE (17:30)
[2017-01-31] MEDS ORDERED: RIVAROXABAN 15 MG TABLET PO SCH (17:30)
[2017-01-31] MEDS: SUCRALFATE 1 GM TABLET PO SCH ×2 (18:49→21:05)
[2017-01-31] MEDS: BUDESONIDE INH.SOLN 0.25mg/2ml NEB AEROSOL SCH (20:12)
[2017-01-31] MEDS ORDERED: RANITIDINE 150 MG TABLET PO SCH (22:00)
--- NOTE | 2017-01-31 23:12 | Echocardiogram ---
DATE OF PROCEDURE 01/31/2017 This is a two-dimensional echo with spectral Doppler, color-flow and M-mode. It was obtained in a patient with left-sided weakness and mental status changes. Left atrial dimension is normal. Left ventricular end-diastolic dimension is normal. Left ventricular wall thickness is normal. LV systolic function is at the lower limits of normal with ejection fraction of about 50%. Right atrium is normal. Right ventricle is normal. Aortic root dimension is normal. Mitral valve is morphologically normal with mild mitral regurgitation. Aortic valve appears to be normal. Tricuspid valve shows mild tricuspid regurgitation with normal estimated pulmonary artery systolic pressure of 30. Pulmonary valve shows no pulmonary insufficiency. There is no pericardial effusion. IMPRESSION 1. LV function at the lower limits of normal with ejection fraction of 50%. 2. Mild mitral regurgitation. 3. Mild tricuspid regurgitation with normal estimated pulmonary artery systolic pressure of 30. MTDD
[2017-02-01] MEDS: NS 1,000 ML IV SCH (06:47)
[2017-02-01 07:50] VITALS: BP 133/67; PULSE 71; TEMP 97.2
--- NOTE | 2017-02-01 08:35 | Magnetic Resonance Report ---
Indication: Left sided weakness, Hx TIA - ? new vs old CVA PROCEDURE: MR head/brain wo con: Encounter: Initial Comparisons: Head CT dated January 31, 2017 and brain MRI dated January 26, 2015 Technique: Multiplanar, multisequence, MR imaging of the head without contrast was acquired. FINDINGS: Motion artifact limiting the exam. The ventricles are of normal size, shape, and contour for the patient's age. There are small nonspecific punctate areas of T2-weighted and T2 FLAIR weighted signal abnormality in the deep frontoparietal white matter that most likely represent small vessel ischemic disease. This is of a degree that is considered to be normal for the patient's age. The brain stem, cerebellum, and cerebral hemispheres otherwise have a normal morphologic appearance as well as MR signal intensity on all pulse sequences. There are no areas of restricted diffusion on diffusion weighted imaging to suggest an acute infarct. There is no evidence of an intracranial mass lesion, intracranial hemorrhage, or hydrocephalus. The visualized portions of the orbits, calvarium, paranasal sinuses, and skull base demonstrate no significant abnormality. IMPRESSION: No acute intracranial abnormality. Stable exam .
[2017-02-01] MEDS ORDERED: RAMIPRIL 5 MG CAPSULE PO SCH (09:00)
[2017-02-01] MEDS ORDERED: FOLIC ACID 1 MG TABLET PO SCH (09:00)
[2017-02-01] MEDS ORDERED: CITALOPRAM 20 MG TABLET PO SCH (09:00)
[2017-02-01] MEDS ORDERED: RIVAROXABAN 15 MG TABLET PO SCH (09:00)
[2017-02-01] MEDS: SUCRALFATE 1 GM TABLET PO SCH ×2 (09:42→13:16)
[2017-02-01] MEDS: BUDESONIDE INH.SOLN 0.25mg/2ml NEB AEROSOL SCH (10:16)
[2017-02-01 10:20] VITALS: RESP 14; O2SAT 91
[2017-02-01] MEDS ORDERED: INSULIN REGULAR, HUMAN 100 UNIT/ML INJECTION SQ ONE (11:54)
[2017-02-01] MEDS ORDERED: METFORMIN 500 MG TABLET PO SCH (12:00)
--- NOTE | 2017-02-01 12:38 | Progress Note ---
Subjective: F/U: Mental status change Doing okay today. Did well with therapy. Note some discomfort/numbness/weakness to left arm and leg. Pt does snore, has non-restorative sleep and also with have am NI: Concern for NICHELLE. Reports was tested years ago but had normal finding. Breathing well. Eating well. No palpitations. Not with F/C. Objective Vital signs: Temperature 97.2 F 02/01/17 07:49 Pulse Rate 71 02/01/17 07:49 Respiratory Rate 14 02/01/17 10:16 Blood Pressure 133/67 02/01/17 07:49 Pulse Oximetry 91 02/01/17 10:16 Oxygen Delivery Method Room Air Weight: 84 kg - Constitutional Present: no acute distress, well nourished, well developed, obese, cooperative - Routine HEENT Exam Head: Present: normocephalic, atraumatic Eye: Present: EOMI, PERRL. Absent: conjunctival icterus ENT: Present: mucous membranes moist - Routine Respiratory Exam Present: CTA bilaterally. Absent: respiratory distress, wheezes, crackles - Routine Cardiovascular Exam Present: RRR - Routine Abdominal Exam Present: soft, normoactive bowel sounds, non distended, non tender. Absent: rebound - Routine Extremities Exam Present: no edema, pulses intact. Absent: cyanosis, clubbing - Routine Musculoskeletal Exam Musculoskeletal: Present: no clubbing or cyanosis, normal strength, no joint swelling - Routine Skin Exam Present: intact, warm, normal turgor - Routine Neurological Exam Present: alert, oriented X3, CN II-XII intact, vision grossly intact, hearing grossly intact. Absent: motor deficit - Routine Psychiatric Exam Present: normal affect, normal thought process, cooperative, good insight, good judgment. Absent: anxious Results - Labs CBC & Chem 7: 02/01/17 04:53 02/01/17 04:53 Assessment and Plan (1) Mental status change Current visit: Yes Status: Acute (2) Chest pain Current visit: Yes Status: Acute (3) DM (diabetes mellitus) Current visit: Yes Status: Chronic (4) HTN (hypertension) Current visit: Yes Status: Chronic (5) Pulmonary emboli Current visit: Yes Status: Chronic (6) Chronic anticoagulation Current visit: Yes Status: Chronic DVT Prophylaxis: SCD's, Xarelto Assessment and Plan: MRI of brain without pathology noted. Suspect arm and leg problems due to peripheral nerve issues. Dr Sousa consulted put out of town Recommend outpatient neurological evaluation. Possible Nerve conduction testing. Vitamin B12 level pending - low B12 could play a role in patients symptoms. Recommend oral Vit B12. If current level low or low normal would recommend oral B12 for 3 months and repeat lab. If not increasing with oral replacement, would recommend IM injections. If level normal, pt may continue B12 at her discretion-may help improve energy level. Improvement of glycemic control will help improve her alertness and decrease fatigue. Diabetic education and dietary instruction ordered. If not able to be done here today, will set up outpatient education. Pt agreeable to education process. Will start metformin 500mg BID with meals to improve sugar control. Recommend further evaluation for NICHELLE - Certainly untreated NICHELLE will contribute to fatigue and difficulty concentrating. Anticipate discharge to home today. Will need F/U with PCP in 1 week. As well as outpatient F/U with Dr Sousa in near future. See orders for details. Case discussed with pt and her daughter: discussed above with them. Discussed how all these various conditions likely playing a role in her symptoms. Questions answered to patient's satisfaction. Time spent in discussion 30 minutes. Care plan discussed with CM, who will be instrumental in setting out outpatient needs. Sepsis Assessment - Evaluation Sepsis screening result: No Definite Risk Hospital Course Summary Disclaimer: The visit summary below is not to be considered part of the above Progress Note. Hospital Course: 01/31/17 [facility] the care of Dr Parikh for mental status change, chest pain with left arm numbness Will obtain MRI of the brain to rule out further ischemia. Given mental status change. Will obtain Echocardiogram. Consult placed to Dr. Kelsey for further cardiac evaluation and treatment. Given ongoing chest pain with left arm numbness. Will follow patient. Cardiac telemetry Normal saline at 75 ML per hour for ongoing hydration. Will monitor Accu-Cheks. Last reported hemoglobin A1c was from November 2015 at which time it was 7.3. We will recheck a hemoglobin A1c tomorrow with morning. labs. Also obtain TSH, vitamin B12 and phosphorus for laboratory completeness Patient was given a one-time dose of oral phosphate supplementation. Given low phosphorus level on admission. Patient is chronically around Xarelto for anticoagulation. Will place Flexeril and [place] on hold as this can influence mentation 02/01/17 Doing okay today. Did well with therapy. Note some discomfort/numbness/weakness to left arm and leg. Pt does snore, has non-restorative sleep and also with have am NI: Concern for NICHELLE. Reports was tested years ago but had normal finding. Breathing well. Eating well. No palpitations. Not with F/C. TSH normal. A1c 8.8%. (9.1% when checked earlier this month). MRI of brain without pathology noted. Suspect arm and leg problems due to peripheral nerve issues. Dr Sousa consulted put out of town Recommend outpatient neurological evaluation. Possible Nerve conduction testing. Vitamin B12 level pending - low B12 could play a role in patients symptoms. Recommend oral Vit B12. If current level low or low normal would recommend oral B12 for 3 months and repeat lab. If not increasing with oral replacement, would recommend IM injections. If level normal, pt may continue B12 at her discretion-may help improve energy level. Improvement of glycemic control will help improve her alertness and decrease fatigue. Diabetic education and dietary instruction ordered. If not able to be done here today, will set up outpatient education. Pt agreeable to education process. Will start metformin 500mg BID with meals to improve sugar control. Recommend further evaluation for NICHELLE - Certainly untreated NICHELLE will contribute to fatigue and difficulty concentrating. Anticipate discharge to home today. Will need F/U with PCP in 1 week. As well as outpatient F/U with Dr Sousa in near future. See orders for details.
--- NOTE | 2017-02-01 13:21 | Cardiology Progress Note ---
Subjective Principal diagnosis: chest pain <Lisa Mo 02/01/17 13:25> Interval history: Miesha is seen in her room on [facility], her daughter is at the bedside. She states she is feeling better today. She denies chest pain or pressure, denies dyspnea, dizziness or lightheadedness. <Lisa Mo 02/01/17 13:25> Exam Vital signs: Temperature 97.2 F 02/01/17 07:49 Pulse Rate 71 02/01/17 07:49 Respiratory Rate 14 02/01/17 10:16 Blood Pressure 133/67 02/01/17 07:49 Pulse Oximetry 91 02/01/17 10:16 Oxygen Delivery Method Room Air <Ish Kelsey - 02/07/17 11:51> Temperature 97.2 F 02/01/17 07:49 Pulse Rate 71 02/01/17 07:49 Respiratory Rate 14 02/01/17 10:16 Blood Pressure 133/67 02/01/17 07:49 Pulse Oximetry 91 02/01/17 10:16 Oxygen Delivery Method Room Air <Lisa Mo 02/01/17 13:25> - Constitutional no acute distress, cooperative <Lisa Mo 02/01/17 13:25> - Routine HEENT Exam ENT: Present: mucous membranes moist <Lisa Mo 02/01/17 13:25> - Routine Neck Exam Absent: JVD, carotid bruit <Lisa Mo 02/01/17 13:25> - Routine Chest/Breast/Axilla Exam Chest wall: Absent: tenderness <Lisa Mo 02/01/17 13:25> - Routine Respiratory Exam Present: CTA bilaterally. Absent: rales, wheezes, crackles <Lisa Mo 02/01/17 13:25> - Routine Cardiovascular Exam Present: RRR, no murmur. Absent: JVD <Lisa Mo 02/01/17 13:25> - Routine Abdominal Exam Present: soft, normoactive bowel sounds <Lisa Mo 02/01/17 13:25> - Routine Skin Exam Present: intact <Lisa Mo 02/01/17 13:25> - Routine Neurological Exam Present: alert, oriented X3 <Lisa Mo M - 02/01/17 13:25> - Routine Psychiatric Exam Present: normal affect, normal thought process <Lisa Mo - 02/01/17 13: 25> - Additional findings Additional findings: Laboratory Tests 01/31/17 01/31/17 01/31/17 11:51 11:51 11:51 WBC 5.3 RBC 4.48 Hgb 12.8 Hct 39.7 MCV 88.6 MCH 28.6 MCHC 32.2 RDW Std Deviation 45.0 Plt Count 176 MPV 9.0 L Immature Gran % (Auto) 0.0 Neut % (Auto) 55.8 Lymph % (Auto) 31.6 [place] % (Auto) 8.0 Eos % (Auto) 4.0 Baso % (Auto) 0.6 Neut # 3.0 Lymph # 1.7 [place] # 0.4 Eos # 0.2 Baso # 0.0 Abs Immat Gran (auto) 0.00 INR 1.65 H APTT 35.1 Turbidity < 20 Sodium 140 Potassium 4.3 Chloride 107 Carbon Dioxide 27 Anion Gap 6 BUN 16.0 Creatinine 0.6 L GFR Calculation 101 BUN/Creatinine Ratio 27 H Glucose 208 H Glucometer Hemoglobin A1c Calculated Osmolality 276 Calcium 10.7 H Phosphorus Total Bilirubin 1.00 Icterus Index < 2 AST 22 ALT 47 Alkaline Phosphatase 130 H Troponin I Total Protein 6.5 Albumin 4.1 Globulin 2.4 Albumin/Globulin Ratio 1.7 Vitamin B12 TSH Specimen Hemolysis < 15 Ur Collection Type Urine Color Urine Clarity Urine pH Ur Specific [place] Urine Protein Urine Glucose (UA) Urine Ketones Urine Occult Blood Urine Nitrate Urine Bilirubin Urine Urobilinogen Ur Leukocyte Esterase Urine RBC Urine WBC Ur Squamous Epith Cells Urine Bacteria Ur Culture Indicated? B-Hydroxybutyrate 01/31/17 01/31/17 01/31/17 12:13 12:13 12:13 WBC RBC Hgb Hct MCV MCH MCHC RDW Std Deviation Plt Count MPV Immature Gran % (Auto) Neut % (Auto) Lymph % (Auto) [place] % (Auto) Eos % (Auto) Baso % (Auto) Neut # Lymph # [place] # Eos # Baso # Abs Immat Gran (auto) INR APTT Turbidity Sodium Potassium Chloride Carbon Dioxide Anion Gap BUN Creatinine GFR Calculation BUN/Creatinine Ratio Glucose Glucometer Hemoglobin A1c Calculated Osmolality Calcium Phosphorus 2.4 L Total Bilirubin Icterus Index AST ALT Alkaline Phosphatase Troponin I < 0.012 Total Protein Albumin Globulin Albumin/Globulin Ratio Vitamin B12 281 TSH 0.81 Specimen Hemolysis < 15 Ur Collection Type Urine Color Urine Clarity Urine pH Ur Specific [place] Urine Protein Urine Glucose (UA) Urine Ketones Urine Occult Blood Urine Nitrate Urine Bilirubin Urine Urobilinogen Ur Leukocyte Esterase Urine RBC Urine WBC Ur Squamous Epith Cells Urine Bacteria Ur Culture Indicated? B-Hydroxybutyrate 0.10 01/31/17 01/31/17 01/31/17 12:22 19:14 21:49 WBC RBC Hgb Hct MCV MCH MCHC RDW Std Deviation Plt Count MPV Immature Gran % (Auto) Neut % (Auto) Lymph % (Auto) [place] % (Auto) Eos % (Auto) Baso % (Auto) Neut # Lymph # [place] # Eos # Baso # Abs Immat Gran (auto) INR APTT Turbidity Sodium Potassium Chloride Carbon Dioxide Anion Gap BUN Creatinine GFR Calculation BUN/Creatinine Ratio Glucose Glucometer 249 Hemoglobin A1c Calculated Osmolality Calcium Phosphorus Total Bilirubin Icterus Index AST ALT Alkaline Phosphatase Troponin I < 0.012 Total Protein Albumin Globulin Albumin/Globulin Ratio Vitamin B12 TSH Specimen Hemolysis < 15 Ur Collection Type Urine, clean catch Urine Color Yellow Urine Clarity Clear Urine pH 6.0 Ur Specific [place] 1.020 Urine Protein Negative Urine Glucose (UA) 3+ A Urine Ketones Negative Urine Occult Blood Negative Urine Nitrate Negative Urine Bilirubin Negative Urine Urobilinogen 1.0 Ur Leukocyte Esterase Negative Urine RBC 0-1 Urine WBC 0-1 Ur Squamous Epith Cells 0-5 Urine Bacteria None seen Ur Culture Indicated? Cult not indicated B-Hydroxybutyrate 02/01/17 02/01/17 02/01/17 00:10 04:53 04:53 WBC 4.2 L RBC 4.14 Hgb 12.0 Hct 36.7 MCV 88.6 MCH 29.0 MCHC 32.7 RDW Std Deviation 44.4 Plt Count 173 MPV 9.1 L Immature Gran % (Auto) 0.2 Neut % (Auto) 45.6 Lymph % (Auto) 39.4 [place] % (Auto) 9.3 H Eos % (Auto) 4.8 H Baso % (Auto) 0.7 Neut # 1.9 Lymph # 1.7 [place] # 0.4 Eos # 0.2 Baso # 0.0 Abs Immat Gran (auto) 0.01 INR APTT Turbidity < 20 Sodium 141 Potassium 4.3 Chloride 108 H Carbon Dioxide 29 Anion Gap 4 L BUN 14.0 Creatinine 0.7 GFR Calculation 85 BUN/Creatinine Ratio 20 Glucose 182 H Glucometer 236 Hemoglobin A1c 8.8 H Calculated Osmolality 277 Calcium 10.3 H Phosphorus 3.1 Total Bilirubin Icterus Index < 2 AST ALT Alkaline Phosphatase Troponin I Total Protein Albumin Globulin Albumin/Globulin Ratio Vitamin B12 TSH Specimen Hemolysis < 15 Ur Collection Type Urine Color Urine Clarity Urine pH Ur Specific [place] Urine Protein Urine Glucose (UA) Urine Ketones Urine Occult Blood Urine Nitrate Urine Bilirubin Urine Urobilinogen Ur Leukocyte Esterase Urine RBC Urine WBC Ur Squamous Epith Cells Urine Bacteria Ur Culture Indicated? B-Hydroxybutyrate 02/01/17 02/01/17 02/01/17 04:53 06:43 11:47 WBC RBC Hgb Hct MCV MCH MCHC RDW Std Deviation Plt Count MPV Immature Gran % (Auto) Neut % (Auto) Lymph % (Auto) [place] % (Auto) Eos % (Auto) Baso % (Auto) Neut # Lymph # [place] # Eos # Baso # Abs Immat Gran (auto) INR APTT Turbidity Sodium Potassium Chloride Carbon Dioxide Anion Gap BUN Creatinine GFR Calculation BUN/Creatinine Ratio Glucose Glucometer 193 264 Hemoglobin A1c Calculated Osmolality Calcium Phosphorus Total Bilirubin Icterus Index AST ALT Alkaline Phosphatase Troponin I < 0.012 Total Protein Albumin Globulin Albumin/Globulin Ratio Vitamin B12 TSH Specimen Hemolysis < 15 Ur Collection Type Urine Color Urine Clarity Urine pH Ur Specific [place] Urine Protein Urine Glucose (UA) Urine Ketones Urine Occult Blood Urine Nitrate Urine Bilirubin Urine Urobilinogen Ur Leukocyte Esterase Urine RBC Urine WBC Ur Squamous Epith Cells Urine Bacteria Ur Culture Indicated? B-Hydroxybutyrate = = = = = = = = = = = = = = = = = = = = = = = = = = = = = = = = = = = = = = = = = = = = = = = = = = = = = = = = = = = Date of Exam: 01/31/17 Type of Exam(s): US echo doppler complete DATE OF PROCEDURE 01/31/2017 This is a two-dimensional echo with spectral Doppler, color-flow and M-mode. It was obtained in a patient with left-sided weakness and mental status changes. Left atrial dimension is normal. Left ventricular end-diastolic dimension is normal. Left ventricular wall thickness is normal. LV systolic function is at the lower limits of normal with ejection fraction of about 50%. Right atrium is normal. Right ventricle is normal. Aortic root dimension is normal. Mitral valve is morphologically normal with mild mitral regurgitation. Aortic valve appears to be normal. Tricuspid valve shows mild tricuspid regurgitation with normal estimated pulmonary artery systolic pressure of 30. Pulmonary valve shows no pulmonary insufficiency. There is no pericardial effusion. IMPRESSION 1. LV function at the lower limits of normal with ejection fraction of 50%. 2. Mild mitral regurgitation. 3. Mild tricuspid regurgitation with normal estimated pulmonary artery systolic pressure of 30. <Lisa Mo - 02/05/17 10:50> Hospital Course This is a general summary of the patient's hospital course. For more details refer to the complete medical record. <Ish Kelsey - 02/07/17 11:51> This is a general summary of the patient's hospital course. For more details refer to the complete medical record. <Lisa Mo - 02/01/17 13:25> Hospital course: 01/31/17 Admit to outpatinet observation under the care of Dr Parikh for mental status change, chest pain with left arm numbness Will obtain MRI of the brain to rule out further ischemia. Given mental status change. Will obtain Echocardiogram. Consult placed to Dr. Kelsey for further cardiac evaluation and treatment. Given ongoing chest pain with left arm numbness. Will follow patient. Cardiac telemetry Normal saline at 75 ML per hour for ongoing hydration. Will monitor Accu-Cheks. Last reported hemoglobin A1c was from November 2015 at which time it was 7.3. We will recheck a hemoglobin A1c tomorrow with morning labs. Also obtain TSH, vitamin B12 and phosphorus for laboratory completeness Patient was given a one-time dose of oral phosphate supplementation. Given low phosphorus level on admission. Patient is chronically around Xarelto for anticoagulation. Will place Flexeril and [place] on hold as this can influence mentation Discuss further orders and plan of care with attending, Dr. Parikh 01/31/17 -Cardiology Chest pain- Trend serial troponins. Repeat EKG in the morning, monitor telemetry HTN- Continue home JOSELYN & BB Hx of PE/ Chronic anticoagulation- Continue Xarelto New onset DM- per attending <Lisa Mo - 02/05/17 10:50> DVT Prophylaxis: Lovenox <Lisa Mo 02/01/17 13:25> Progress Note-A&P (1) Chronic anticoagulation Status: Chronic (2) Precordial pain Status: Resolved (3) Essential (primary) hypertension Status: Acute (4) Mixed hyperlipidemia Status: Acute (5) Personal history of pulmonary embolism Status: Acute (6) Type 2 diabetes mellitus without complications Status: Acute <Ish Kelsey 02/07/17 11:51> (1) Precordial pain Status: Resolved Assessment and plan: No further chest pain/pressure. Troponins begative, EKG unremarkable, Echo essentially normal. Follow up with Dr. Kelsey in 2 weeks on 02/15/17 (2) Essential (primary) hypertension Status: Acute (3) Mixed hyperlipidemia Status: Acute (4) Personal history of pulmonary embolism Status: Acute (5) Chronic anticoagulation Status: Chronic (6) Type 2 diabetes mellitus without complications Status: Acute <Lisa Mo 02/05/17 10:48> - Time Spent With Patient Total time spent is greater than 50% in coordination of care (as documented) at patient's floor/unit and/or counseling patient: <Ish Kelsey 02/07/17 11:51> Total time spent is greater than 50% in coordination of care (as documented) at patient's floor/unit and/or counseling patient: <Lisa Mo 02/01/17 13:25> less than 15 minutes <Lisa Mo 02/05/17 10:50> - Attestation Attestation Narrative: Recommendation After examining the patient I agree with the above assessment. I am involved in the formulation of the patient's plan of care. <Ish Kelsey 02/07/17 11:51> Sepsis Assessment - Evaluation Sepsis screening result: No Definite Risk <Lisa Mo 02/01/17 13:25>
--- NOTE | 2017-02-01 14:16 | Discharge Summary ---
Discharge Information Date of admission: 01/31/17 14:11 Anticipated date of discharge: 02/01/17 Attending Physician: Gavin Parikh MD Primary care physician: STEVE Hunter Consults: 01/31/17 15:52 Physician Consult [CONS] Routine Consulting Provider: Ish Kelsey Reason For Exam: chest pain, left arm numbness, increased confusion 01/31/17 20:01 Physician Consult [CONS] Routine Consulting Provider: Elizabeth Sanford Reason For Exam: Mental status change, vision change Not able to see as out this week. 02/01/17 Strategy Execution Consultant Consult [Inpatient Diabetic Consult] [CONS] Routine Diabetic Diagnosis: Other Diabetic Training: Disease Process Detect Complications Medications Monitoring Diabetes Nutritional Management Comment: NEW DIABETIC HGB A1C 8.8 Inpatient Diabetic Consult [CONS] Routine Diabetic Diagnosis: E11.65 Uncontrolled T2 DM Diabetic Training: Monitoring Diabetes Detect Complications Not able to see - will set up outpatient appointment. 02/01/17 11:57 Dietary Consult [CONS] Routine Comment: Reason For Exam: Type II DM - Discharge Diagnosis (1) Mental status change Qualifiers: Altered mental status type: unspecified Qualified Code(s): R41.82 - Altered mental status, unspecified Status: Acute (2) Chest pain Qualifiers: Chest pain type: unspecified Qualified Code(s): R07.9 - Chest pain, unspecified Status: Acute (3) DM (diabetes mellitus) Qualifiers: Diabetes mellitus type: type 2 Diabetes mellitus complication status: with hyperglycemia Diabetes mellitus exterminator helper termite insulin use: without fdc use Qualified Code(s): E11.65 - Type 2 diabetes mellitus with hyperglycemia Status: Chronic (4) HTN (hypertension) Qualifiers: Hypertension type: essential hypertension Qualified Code(s): I10 - Essential (primary) hypertension Status: Chronic (5) Chronic anticoagulation Status: Chronic (6) Pulmonary emboli Qualifiers: Pulmonary embolism type: other Chronicity: unspecified Acute cor pulmonale presence: without acute cor pulmonale Qualified Code(s): I26.99 - Other pulmonary embolism without acute cor pulmonale Status: Chronic - Procedures Procedures: Date of Exam: 01/31/17 Type of Exam(s): US echo doppler complete This is a two-dimensional echo with spectral Doppler, color-flow and M-mode. It was obtained in a patient with left-sided weakness and mental status changes. Left atrial dimension is normal. Left ventricular end-diastolic dimension is normal. Left ventricular wall thickness is normal. LV systolic function is at the lower limits of normal with ejection fraction of about 50%. Right atrium is normal. Right ventricle is normal. Aortic root dimension is normal. Mitral valve is morphologically normal with mild mitral regurgitation. Aortic valve appears to be normal. Tricuspid valve shows mild tricuspid regurgitation with normal estimated pulmonary artery systolic pressure of 30. Pulmonary valve shows no pulmonary insufficiency. There is no pericardial effusion. IMPRESSION 1. LV function at the lower limits of normal with ejection fraction of 50%. 2. Mild mitral regurgitation. 3. Mild tricuspid regurgitation with normal estimated pulmonary artery systolic pressure of 30. Date of Exam: 01/31/17 PROCEDURE: US carotid doppler BI: TECHNIQUE: Grayscale, color and duplex Doppler imaging was performed of the carotid systems bilaterally. Velocities in cm/sec - validated velocity measurements with angiographic measurements, velocity criteria are extrapolated from diameter data as defined by the Society of Radiologists in Ultrasound Consensus Conference Radiology 2003; 229;340-346. Comparison: Carotid Doppler dated April 24, 2016 RIGHT: PSV ICA 106 EDV ICA 32.8 PSV CCA 86.6 EDV CCA 26.9 SVR 1.2 PSV ECA 63.6 ICA Diameter reduction 20%-40% (1.2-1.4 [id number])% LEFT: PSV ICA 93.6 EDV ICA 31.4 PSV CCA 78.9 EDV CCA 26.3 SVR 1.2 PSV ECA 73.7 ICA Diameter reduction 20%-40% (1.2-1.4 [id number])% The right vertebral artery is patent with cephalic flow. The left vertebral artery is patent with cephalic flow. IMPRESSION: No hemodynamically significant carotid stenosis. - Laboratory Labs: 02/01/17 04:53 02/01/17 04:53 Laboratory Tests 01/31/17 01/31/17 02/01/17 12:13 12:13 04:53 Hemoglobin A1c 8.8 H Vitamin B12 Pending TSH 0.81 - Radiology Radiology: = = = = = = = = = = = = = = = = = = = = = = = = = = = = = = = = = = = = = = = = = = = = = = = = = = = = = = = = = = = Date of Exam: 01/31/17 Type of Exam(s): MR head/brain wo con Reason for Exam(s): Left sided weakness, Hx TIA - ? new vs old CVA Indication: Left sided weakness, Hx TIA - ? new vs old CVA PROCEDURE: MR head/brain wo con: Comparisons: Head CT dated January 31, 2017 and brain MRI dated January 26, 2015 Technique: Multiplanar, multisequence, MR imaging of the head without contrast was acquired. FINDINGS: Motion artifact limiting the exam. The ventricles are of normal size, shape, and contour for the patient's age. There are small nonspecific punctate areas of T2-weighted and T2 FLAIR weighted signal abnormality in the deep frontoparietal white matter that most likely represent small vessel ischemic disease. This is of a degree that is considered to be normal for the patient's age. The brain stem, cerebellum, and cerebral hemispheres otherwise have a normal morphologic appearance as well as MR signal intensity on all pulse sequences. There are no areas of restricted diffusion on diffusion weighted imaging to suggest an acute infarct. There is no evidence of an intracranial mass lesion, intracranial hemorrhage, or hydrocephalus. The visualized portions of the orbits, calvarium, paranasal sinuses, and skull base demonstrate no significant abnormality. IMPRESSION: No acute intracranial abnormality. Stable exam History of Present Illness HPI: She is a 62-year-old female who presented to see her primary care provider, Zenia Arias this morning for a routine follow-up of new onset diabetes. During her visit. Miesha reported of having intermittent episodes of chest pain with left arm numbness for the past several weeks. She reported that she has had a change in her concentration and has episodes of confusion with memory deficits. It was reported that patient had an A1c in November 2015 that was 7.3. Patient did not start diabetes medication at that time. Given the concern of these acute symptoms. Patient was directed to the emergency room for further acute evaluation and treatment. CBC was found to be normal. Sodium is 140, potassium 4.3, BUNs 16, creatinine 0.6. Glucose is elevated at 208. Calcium is elevated at 10.7, phosphorus is low at 2.4. Initial troponin is undetectable. INR is 1.65. Urinalysis did reveal 3+ glucose, otherwise unremarkable. B- Hydroxybutyrate was normal at 0.10. CT scan of the head was performed showing no acute intracranial hemorrhage or infarcts. Asked x-ray did not reveal any acute cardiopulmonary concerns. Is afebrile in the emergency room. She is noted to have elevated blood pressure 171/78. Given findings of mental status change . Complaint with ongoing chest pain with left arm numbness. The hospitalist services were contacted and accepted patient for outpatient admission for further evaluation and treatment. Miesha is seen on initial examination. She is alert and oriented and pleasant during examination. She does describe intermittent episodes of chest pressure with left arm numbness that have been ongoing for the past 3 weeks. She notes in the last several days that she is confused and cannot remember certain tasks. She also describes looking at a computer screen and unable to read "normal words". He has had no recent trauma or acute changes. Patient is active and resides independently with her . She continues to work. For complete details of the H&P refer to than document. Objective Vital signs: Temperature 97.2 F 02/01/17 07:49 Pulse Rate 71 02/01/17 07:49 Respiratory Rate 14 02/01/17 10:16 Blood Pressure 133/67 02/01/17 07:49 Pulse Oximetry 91 02/01/17 10:16 Oxygen Delivery Method Room Air Weight: 84 kg Hospital Course This is a general summary of the patient's hospital course. For more details refer to the complete medical record. Hospital course: 01/31/17 Admit to outpatinet observation under the care of Dr Parikh for mental status change, chest pain with left arm numbness Will obtain MRI of the brain to rule out further ischemia. Given mental status change. Will obtain Echocardiogram. Consult placed to Dr. Kelsey for further cardiac evaluation and treatment. Given ongoing chest pain with left arm numbness. Will follow patient. Cardiac telemetry Normal saline at 75 ML per hour for ongoing hydration. Will monitor Accu-Cheks. Last reported hemoglobin A1c was from November 2015 at which time it was 7.3. We will recheck a hemoglobin A1c tomorrow with morning labs. Also obtain TSH, vitamin B12 and phosphorus for laboratory completeness Patient was given a one-time dose of oral phosphate supplementation. Given low phosphorus level on admission. Patient is chronically around Xarelto for anticoagulation. Will place Flexeril and [place] on hold as this can influence mentation Discuss further orders and plan of care with attending, Dr. Parikh 01/31/17 -Cardiology Chest pain- Trend serial troponins. Repeat EKG in the morning, monitor telemetry HTN- Continue home JOSELYN & BB Hx of PE/ Chronic anticoagulation- Continue Xarelto New onset DM- per attending 02/01/17 Doing okay today. Did well with therapy. Note some discomfort/numbness/weakness to left arm and leg. Pt does snore, has non-restorative sleep and also with have am NI: Concern for NICHELLE. Reports was tested years ago but had normal finding. Breathing well. Eating well. No palpitations. Not with F/C. TSH normal. A1c 8.8%. (9.1% when checked earlier this month). MRI of brain without pathology noted. Suspect arm and leg problems due to peripheral nerve issues. Dr Sanford consulted put out of town Recommend outpatient neurological evaluation. Possible Nerve conduction testing. Vitamin B12 level pending - low B12 could play a role in patients symptoms. Recommend oral Vit B12. If current level low or low normal would recommend oral B12 for 3 months and repeat lab. If not increasing with oral replacement, would recommend IM injections. If level normal, pt may continue B12 at her discretion-may help improve energy level. Improvement of glycemic control will help improve her alertness and decrease fatigue. Diabetic education and dietary instruction ordered. If not able to be done here today, will set up outpatient education. Pt agreeable to education process. Will start metformin 500mg BID with meals to improve sugar control. Recommend further evaluation for NICHELLE - Certainly untreated NICHELLE will contribute to fatigue and difficulty concentrating. Anticipate discharge to home today. Will need F/U with PCP in 1 week. As well as outpatient F/U with Dr Sanford in near future. To see Dr Kelsey on 02/15 at 1350. Medical Laboratory Technologist saw, but not able to have diabetic education. Will make outpatient arrangements. See orders for details. Discharge Plan - Med Rec/Dispo Referrals/Follow Up: Margaret Hanna PA [Family Provider] - 1 Week Ish Kelsey MD [Physician] - (February 15 at 1:50 PM.) Elizabeth Sanford MD [Physician] - (APPOITMENT ON 02/12 AT 10:15. OFFICE IS [facility] ON SECOND FLOOR.) Prescriptions: New Cyanocobalamin (Vitamin B-12) [Vitamin B12] 1,000 mcg PO DAILY #100 tablet Metformin [Glucophage] 500 mg PO BIDWM #60 tablet Continue Metoprolol Succinate 25 mg PO BID #0 Cyclobenzaprine HCl 10 mg PO BID PRN #0 PRN Reason: MUSCLE SPASM raNITIdine HCl [Ranitidine HCl] 150 mg PO HS #0 Methotrexate/Pf [Rasuvo 20 mg/0.4 ml Autoinj] 20 mg SQ WEEKLY Folic Acid [Folate] 1 mg PO DAILY Diclofenac [Voltaren] 1 applic TOP QID PRN PRN Reason: Pain Beclomethasone 40 Mcg/Actuatio [Qvar Inhaler] 2 puff ORAL INH BID Albuterol Sulfate [Proair Hfa] 1 puff INH Q4H PRN PRN Reason: Prn Orders Acetaminophen [Acetaminophen ER] 650 mg PO Q4H Rivaroxaban [Xarelto] 15 mg PO QAM Ramipril [Altace] 5 mg PO DAILY #0 Hydrocodone/APAP 7.5/325 [[place] 7.5/325] 1 tab PO BID PRN PRN Reason: Pain Albuterol Inhaler [Ventolin Hfa] 2 puff ORAL INH Q4HR PRN PRN Reason: Prn Orders citalopram 20 mg tablet 20 mg PO DAILY #30 tab sucralfate 1 gram tablet 1 g PO QID #120 tab Discharge Instructions/Outpatient Orders: Final Provider Discharge Instructions Location: Determined By Patient - Disposition 01 Discharged Home, Self-Care - Attestation Attestation Narrative: 02/01/17 14:27 I have interviewed and examined pt today. See my progress note from today for details. Medically stable for discharge to home.
[2017-02-02] MEDS ORDERED: RIVAROXABAN 15 MG TABLET PO SCH (17:30)
== END 2017-02-01 15:16 | disposition home or self-care (01) ==
LOC: MED 11:24 → ED 11:24 → MED 14:33
PROVIDERS: ADMIT Hospitalist; ATTEND Hospitalist